=== PATIENT | female | born 1935 | race Caucasian/White ===

== ENCOUNTER → 2016-11-06 | Outpatient (CLI) | payer OTHER ==
[~2016-11-06] MED LIST: ACETAMINOPHEN PO; ACETAMINOPHEN650 M1 PO; ACTOS PO; ADVAIR 2501 DISK W/D PO; AMLODIPINE BESY10 MG PO; AMLODIPINE BESYL5 MG PO; APRESOLINE PO; ASPIRIN EC81 M1 PO; ASPIRIN PO; ASPIRIN81 M1 PO; ASPIRIN81 M2 PO; ATRAC-TAIN; BUMEX1 MG PO; CALCITRIOL0.25 MCG PO; CARDIZEM CD PO; CIPRO PO; COLACE PO; DUONEB 2.5-0.5 M3 ML NEB; FAMOTIDINE PO; GLUCOTROL PO; HCTZ PO; HUMULIN 70100 UNIT/1 SUBQ; HYDROCODON-ACE1 EAC7 PO; HYDROCODON-ACE1 EACH PO; IMDUR PO; KEPPRA250 MG PO; LESCOL XL80 MG PO; LEVAQUIN PO; LOPRESSOR PO; LORTAB 10-5001 EACH PO; MAALOX SUSPENSI30 ML PO; METOPROLOL TART25 MG PO; MEVACOR PO; MIRALAX17 GM DOB; Metoprolol PO; NOVOLIN; NOVOLIN 70/30 U13 M1 SUBQ; NOVOLIN 70/30 U13 ML INJ; NOVOLOG MI100 UNIT/1; NOVOLOG MI100 UNIT/1 SUBQ; NOVOLOG7030; NOVOLOG7030 SUBQ; NYSTATIN TOP; POTASSIUM PO; PREDNISONE PO; SOD BICARBONATE PO; SODIUM BICARBO650 MG PO; TOPROL XL PO; VICODIN 5/1 TAB 5/50 PO; VICODIN 5/500 T1 TAB PO; ZYLOPRIM PO; ZYLOPRIM100 MG PO; [UNRECOGNIZED DRUG - OTHER]
[2016-11-06 12:25] LABS: HEMATOCRIT 44.6 % (35.0-45.0); HEMOGLOBIN 14.2 gm/dL (12.0-16.0); MEAN CELL VOLUME 90.9 FL (83-96); MEAN CORPUSCULAR HEMOGLOBIN 28.9 PG (28-34); MEAN CORPUSCULAR HGB CONC 31.8 g/dL (30-36); MEAN PLATELET VOLUME 10.8 FL (6.5-11.5); RED BLOOD COUNT 4.9 X10e (3.90-5.30); RED CELL DISTRIBUTION WIDTH 14.3 % (11.0-15.5); WHITE BLOOD COUNT 8.3 X10e3 (4.0-10.5)
[2016-11-06 12:42] LABS: ALBUMIN SERUM 3.7 g/dL (3.5-5.0); BILIRUBIN,TOTAL 0.3 mg/dL (0.2-2.0); CALCIUM SERUM 7.4 mg/dL (8.4-10.2); CREATININE SERUM 2.5 mg/dL (0.6-1.4); GLOM FILT RATE Estimated 17.4 mL/min (>60); POTASSIUM 4.8 mmol/L (3.5-5.1); PROTEIN TOTAL SERUM 7.9 g/dL (6.0-8.3)
[2016-11-06 14:16] LABS: RETICULOCYTE 0.9 % (0.5-2.8)
[2016-11-06 15:54] LABS: FOLATE (FOLIC ACID) 7.6 ng/mL (>5.8)
[2016-11-10 18:02] LABS: CALCIUM (PTHINTACT) 7.5 mg/dL (8.6-10.4)
== END | disposition home or self-care (01) ==
LOC: SLAB 11:58
PROVIDERS: Internal Medicine
DX: E78.5 Hyperlipidemia, unspecified (principal); M79.1 Myalgia; E21.3 Hyperparathyroidism, unspecified; E11.9 Type 2 diabetes mellitus without complications; N18.9 Chronic kidney disease, unspecified; R79.89 Other specified abnormal findings of blood chemistry; Z79.899 Other long term (current) drug therapy
CPT/HCPCS: 36415; 80053; 80061; 82310; 82550; 82607; 82728; 82746; 83036; 83540; 83550; 83970; 85027; 85044

== ENCOUNTER 2017-03-21 16:50 | Emergency (ER) | payer OTHER ==
--- NOTE | ~2017-03-21 | EKG ---
PATIENT: ALEJANDRINA LOYOLA UNIT #: [id number] Ventricular Rate: 67 BPM Atrial Rate: 67 BPM P-R Interval: 172 ms QRS Duration: 84 ms Q-T Interval: 404 ms QTC Calculation(Bezet): 426 ms P [place]: 13 degrees Calculated R [place]: -4 degrees Calculated T [place]: -9 degrees Diagnosis Line: Normal sinus rhythm Diagnosis Line: ST elevation consider anterolateral injury or Diagnosis Line: acute infarct Diagnosis Line: ACUTE AR / STEMI Diagnosis Line: Abnormal ECG Diagnosis Line: When compared with ECG of 09-DEC-2013 13:29, Diagnosis Line: ST now depressed in Inferior leads Diagnosis Line: ST elevation now present in Lateral leads Diagnosis Line: T wave inversion now evident in Inferior leads Diagnosis Line: Confirmed by LALITHA CARDONA MD ([id number]) on 03/22/2017 Diagnosis Line: 11:05:45 PM INTERPRETING MD: BRENDAN SERRANO
[2017-03-21 17:50] LABS: POC - CKMB 13.1 ng/mL (0.0-7.9); POC - TROPONIN 1.28 ng/mL (<=0.05)
== END 2017-03-21 17:42 | disposition short-term general hospital (02) ==
LOC: CED 16:50
PROVIDERS: Emergency Medicine
DX: I21.3 ST elevation (STEMI) myocardial infarction of unspecified site (principal); R11.2 Nausea with vomiting, unspecified; I10 Essential (primary) hypertension; E11.9 Type 2 diabetes mellitus without complications; Z79.82 Long term (current) use of aspirin; Z79.899 Other long term (current) drug therapy
CPT/HCPCS: 82553; 84484; 93005; 96374; 96375; 99291; J1644; J2270; J2405